=== PATIENT | male | born 1945 | race Asian ===

== ENCOUNTER 2016-12-09 10:50 | Outpatient (RCR) | payer OTHER | END 2016-12-18 | disposition home or self-care (01) | LOC: PTY 10:50 | DX: M17.11 Unilateral primary osteoarthritis, right knee (principal); I10 Essential (primary) hypertension; R73.03 Prediabetes; Z96.651 Presence of right artificial knee joint; Z79.84 Long term (current) use of oral hypoglycemic drugs | CPT/HCPCS: 97110; 97140; 97161; G0283 ==

== ENCOUNTER 2016-12-23 10:55 | Outpatient (RCR) | payer OTHER | END 2017-01-17 | disposition home or self-care (01) | LOC: PTY 10:55 | DX: M17.11 Unilateral primary osteoarthritis, right knee (principal); I10 Essential (primary) hypertension; R73.03 Prediabetes; Z96.651 Presence of right artificial knee joint | CPT/HCPCS: 97035; 97110; 97140; G0283 ==